=== PATIENT | female | born 1980 | race Caucasian/White ===

== ENCOUNTER 2021-10-19 12:44 | Day surgery (SDC) | payer BC ==
[2021-10-19] MEDS ORDERED: LIDOCAINE HCL 2% 100 MG/5 ML IJ ONE (12:45)
[2021-10-19] MEDS ORDERED: Lactated Ringers 1,000 ML IV ONE (15:14)
[2021-10-19] MEDS ORDERED: DIPRIVAN 200 MG/20 ML IV ONE (15:30)
--- NOTE | 2021-10-20 09:35 | XRAY ---
Indication: Bilateral L4-S1 MBB. Intraoperative fluoroscopy provided for 13 seconds. Single digital spot image submitted for interpretation demonstrates posterior needle tips projecting over the expected left and right L4-S1 nerve roots. Correlate with intraoperative findings/report.
--- NOTE | 2021-10-20 09:59 | XRAY ---
13 seconds fluoroscopy time in surgery for bilateral L4-S1 MBB.
== END 2021-10-19 15:57 | disposition home or self-care (01) ==
LOC: SDC-PAIN 12:44
PROVIDERS: ATTEND Psychiatry & Neurology Pain Medicine
DX: M47.816 Spondylosis without myelopathy or radiculopathy, lumbar region (principal); Z79.899 Other long term (current) drug therapy
CPT/HCPCS: 64494; 64495; 72020; 77002; J2704

== ENCOUNTER 2021-11-16 13:39 | Day surgery (SDC) | payer BC ==
[2021-11-16] MEDS ORDERED: BUPIVACAINE 0.5% VIAL IJ ONE (13:40)
[2021-11-16] MEDS ORDERED: Lactated Ringers 1,000 ML IV ONE (15:13)
[2021-11-16] MEDS ORDERED: DIPRIVAN 200 MG/20 ML IV ONE (15:39)
--- NOTE | 2021-11-16 16:33 | XRAY ---
Indication: Bilateral L4-S1 MBB. Intraoperative fluoroscopy provided for 31 seconds. Single digital spot image submitted for interpretation demonstrates posterior needle tips projecting over the expected left and right L4-S1 nerve roots. Correlate with intraoperative findings/report.
--- NOTE | 2021-11-16 16:40 | XRAY ---
31 seconds of fluoroscopy was used in surgery for a bilateral L4-S1 MBB.
== END 2021-11-16 16:01 | disposition home or self-care (01) ==
LOC: SDC-PAIN 13:39
PROVIDERS: ATTEND Psychiatry & Neurology Pain Medicine
DX: M47.816 Spondylosis without myelopathy or radiculopathy, lumbar region (principal); Z79.899 Other long term (current) drug therapy
CPT/HCPCS: 64493; 64494; 72020; 77002; J2704

== ENCOUNTER 2021-12-13 12:50 | Day surgery (SDC) | payer BC ==
[2021-12-13] MEDS ORDERED: BUPIVACAINE 0.5% VIAL IJ ONE (12:51)
[2021-12-13] MEDS ORDERED: Xylocaine 1% Vial 30 ML PF IJ ONE (12:51)
[2021-12-13] MEDS ORDERED: Depo-Medrol 40 MG/ML IM ONE (12:51)
[2021-12-13] MEDS ORDERED: Lactated Ringers 1,000 ML IV ONE (15:20)
[2021-12-13] MEDS ORDERED: DIPRIVAN 200 MG/20 ML IV ONE (15:56)
--- NOTE | 2021-12-13 17:40 | XRAY ---
Indication: Right L4-S1 RFA. Intraoperative fluoroscopy provided for 24 seconds. 3 digital spot image submitted for interpretation demonstrates posterior needle tips projecting over the expected right L4-S1 nerve roots. Correlate with intraoperative findings/report.
--- NOTE | 2021-12-14 08:49 | XRAY ---
24 seconds fluoroscopy time in surgery for right L4-S1 RFA.
== END 2021-12-13 16:24 | disposition home or self-care (01) ==
LOC: SDC-PAIN 12:50
PROVIDERS: ATTEND Psychiatry & Neurology Pain Medicine
DX: M47.816 Spondylosis without myelopathy or radiculopathy, lumbar region (principal); Z79.899 Other long term (current) drug therapy
CPT/HCPCS: 64635; 64636; 72100; 77002; J1030; J2001; J2704

== ENCOUNTER 2021-12-20 10:49 | Day surgery (SDC) | payer BC ==
[2021-12-20] MEDS ORDERED: BUPIVACAINE 0.5% VIAL IJ ONE (10:50)
[2021-12-20] MEDS ORDERED: Xylocaine 1% Vial 30 ML PF IJ ONE (10:50)
[2021-12-20] MEDS ORDERED: Depo-Medrol 40 MG/ML IM ONE (10:50)
[2021-12-20] MEDS ORDERED: DIPRIVAN 200 MG/20 ML IV ONE (12:43)
--- NOTE | 2021-12-20 13:49 | XRAY ---
28 seconds fluoroscopy time in surgery for left L4-S1 RFA.
--- NOTE | 2021-12-20 13:50 | XRAY ---
Indication: Left L4-S1 RFA. Intraoperative fluoroscopy provided for 28 seconds. 3 digital spot image submitted for interpretation demonstrates posterior needle tips projecting over the expected left L4-S1 nerve roots. Correlate with intraoperative findings/report.
== END 2021-12-20 13:17 | disposition home or self-care (01) ==
LOC: SDC-PAIN 10:49 → EDSTATUS 19:12
PROVIDERS: ATTEND Psychiatry & Neurology Pain Medicine
DX: M47.816 Spondylosis without myelopathy or radiculopathy, lumbar region (principal); Z79.899 Other long term (current) drug therapy
CPT/HCPCS: 64635; 64636; 72100; 77002; J1030; J2001; J2704

== ENCOUNTER 2022-02-28 10:52 | Day surgery (SDC) | payer BC ==
[2022-02-28] MEDS ORDERED: Depo-Medrol 40 MG/ML IM ONE (10:53)
[2022-02-28] MEDS ORDERED: Marcaine Mpf 0.5% Vial 30 Ml IJ ONE (10:53)
[2022-02-28] MEDS ORDERED: DIPRIVAN 200 MG/20 ML IV ONE (13:13)
--- NOTE | 2022-02-28 14:16 | XRAY ---
Indication: Bilateral SI joint injection. Intraoperative fluoroscopy provided for 18 seconds. 3 digital spot images submitted for interpretation demonstrates posterior needle tip projecting over the inferior left and right SI joint. Correlate with intraoperative findings/report.
[2022-02-28] MEDS ORDERED: Lactated Ringers 1,000 ML IV ONE (14:23)
== END 2022-02-28 13:24 | disposition home or self-care (01) ==
LOC: SDC-PAIN 10:52
PROVIDERS: ATTEND Psychiatry & Neurology Pain Medicine
DX: M46.1 Sacroiliitis, not elsewhere classified (principal); Z79.899 Other long term (current) drug therapy
CPT/HCPCS: 27096; 72202; 77002; J1030; J2704; G0260